=== PATIENT | male | born 1960 | race Caucasian/White ===

== ENCOUNTER 2020-04-25 09:27 | Emergency (ER) | payer OTHER ==
[2020-04-25] MEDS ORDERED: Sodium Chloride 0.9% 1,000 ML IV ONE (09:31)
[2020-04-25] MEDS ORDERED: Sodium Chloride 0.9% 10 ML Syringe FLUSH PRN (09:31)
[2020-04-25] MEDS ORDERED: Sodium Chloride 0.9% 2.5 ML Syringe FLUSH PRN (09:31)
--- NOTE | 2020-04-25 09:34 | EDM.PDOC ---
ED HPI GENERAL MEDICAL PROBLEM - General Chief Complaint: Genitourinary Problem Stated Complaint: PAIN IN LOWER ABD Time Seen by Provider: 04/25/20 09:31 Source of Information: Reports: Patient History Limitations: Reports: No Limitations - History of Present Illness INITIAL COMMENTS - FREE TEXT/NARRATIVE: PMHx frequent renal stones presents for LLQ abdominal pain radiating to groin since this morning. Feels similar to prior renal stones but worse. Pain does not radiate to back. Has not noted hematuria/dysuria. Denies constipation/diarrhea. Denies fevers. Left Abdomen Pain Score (Numeric/FACES): 10 - Related Data Allergies Allergy/AdvReac Type Severity Reaction Status Date / Time seafood Allergy Anaphylactic Uncoded 04/25/20 10:09 Shock Home Meds: Home Meds Fluticasone/Vilanterol [Breo Ellipta 100-25 MCG Inhalation Kit] 1 each IH 04/25/20 [History] Ibuprofen [Motrin] 600 mg PO Q6H PRN 10 Days #28 tab 04/25/20 [Rx] Tamsulosin [Tamsulosin 24 Hr] 0.4 mg PO DAILY #14 cap.er 04/25/20 [Rx] oxyCODONE HCl/Acetaminophen [Percocet 5-325 mg Tablet] 1 each PO Q4H #18 tablet 04/25/20 [Rx] ED ROS GENERAL - Review of Systems Review Of Systems: Comprehensive ROS is negative, except as noted in HPI. ED EXAM, RENAL/ - Physical Exam Exam: See Below Exam Limited By: No Limitations General Appearance: Alert, WD/WN, No Apparent Distress Ears: Normal External Exam Nose: Normal Inspection Throat/Mouth: Normal Inspection, Normal Voice, No Airway Compromise Head: Atraumatic, Normocephalic Neck: Normal Inspection Respiratory/Chest: No Respiratory Distress, Lungs Clear, Normal Breath Sounds, No Accessory Muscle Use Cardiovascular: Normal Peripheral Pulses, Regular Rate, Rhythm GI/Abdominal: Soft, Non-Tender, No Distention Back Exam: Normal Inspection. No: CVA Tenderness (L), CVA Tenderness (R) Extremities: Normal Inspection Neurological: Alert Psychiatric: Normal Affect, Normal Mood Skin Exam: Warm, Dry, Intact Course - Vital Signs Last Recorded V/S: Last Vital Signs Temp 96.5 F L 04/25/20 10:11 Pulse 72 04/25/20 10:39 Resp 16 04/25/20 10:39 BP 142/89 H 04/25/20 10:39 Pulse Ox 97 04/25/20 10:11 - Orders/Labs/Meds Orders: Active Orders 24 hr Category Date Time Status Ketorolac [Toradol] Med 04/25/20 09:45 Active 15 mg IVPUSH Q6H Sodium Chloride 0.9% [Saline Flush] Med 04/25/20 09:31 Active 10 ml FLUSH ASDIRECTED PRN Sodium Chloride 0.9% [Saline Flush] Med 04/25/20 09:31 Active 2.5 ml FLUSH ASDIRECTED PRN Saline Lock Insert [OM.PC] Stat Oth 04/25/20 09:32 Ordered Medication Orders Ketorolac Tromethamine (Toradol) 15 mg IVPUSH Q6H MARK Stop: 04/30/20 09:32 Last Admin: 04/25/20 10:43 Dose: Not Given Documented by: ELIA Sodium Chloride (Saline Flush) 10 ml FLUSH ASDIRECTED PRN PRN Reason: Keep Vein Open Last Admin: 04/25/20 10:37 Dose: 10 ml Documented by: ELIA Sodium Chloride (Saline Flush) 2.5 ml FLUSH ASDIRECTED PRN PRN Reason: Keep Vein Open Last Admin: 04/25/20 10:37 Dose: 2.5 ml Documented by: ELIA Labs: Laboratory Tests 04/25/20 04/25/20 04/25/20 Range/Units 10:06 10:06 10:10 WBC 12.58 H (4.0-11.0) K/uL RBC 5.01 (4.50-5.90) M/uL Hgb 15.6 (13.0-17.0) g/dL Hct 46.3 (38.0-50.0) % MCV 92.4 (80.0-98.0) fL MCH 31.1 (27.0-32.0) pg MCHC 33.7 (31.0-37.0) g/dL RDW Std Deviation 45.6 (28.0-62.0) fl RDW Coeff of Jael 13 (11.0-15.0) % Plt Count 198 (150-400) K/uL MPV 9.90 (7.40-12.00) fL Neut % (Auto) 76.6 (48.0-80.0) % Lymph % (Auto) 13.3 L (16.0-40.0) % [place] % (Auto) 7.7 (0.0-15.0) % Eos % (Auto) 2.0 (0.0-7.0) % Baso % (Auto) 0.4 (0.0-1.5) % Neut # (Auto) 9.6 H (1.4-5.7) K/uL Lymph # (Auto) 1.7 (0.6-2.4) K/uL [place] # (Auto) 1.0 H (0.0-0.8) K/uL Eos # (Auto) 0.3 (0.0-0.7) K/uL Baso # (Auto) 0.1 (0.0-0.1) K/uL Nucleated RBC % 0.0 /100WBC Nucleated RBCs # 0 K/uL Sodium 138 (136-148) mmol/L Potassium 4.2 (3.5-5.1) mmol/L Chloride 103 (98-107) mmol/L Carbon Dioxide 24.4 (21.0-32.0) mmol/L BUN 14 (7.0-18.0) mg/dL Creatinine 1.3 (0.8-1.3) mg/dL Est Cr Clr Drug Dosing TNP Estimated GFR (MDRD) 56.5 ml/min Glucose 115 H (74-106) mg/dL Calcium 8.5 (8.5-10.1) mg/dL Total Bilirubin 0.5 (0.2-1.0) mg/dL AST 21 (15-37) IU/L ALT 33 (14-63) IU/L Alkaline Phosphatase 53 (46-116) U/L Total Protein 7.3 (6.4-8.2) g/dL Albumin 3.9 (3.4-5.0) g/dL Globulin 3.4 (2.6-4.0) g/dL Albumin/Globulin Ratio 1.1 (0.9-1.6) Urine Color BROWN Urine Appearance SLT CLOUDY Urine pH 6.0 (5.0-8.0) Ur Specific [place] >= 1.030 (1.001-1.035) Urine Protein 30 H (NEGATIVE) mg/dL Urine Glucose (UA) NEGATIVE (NEGATIVE) mg/dL Urine Ketones TRACE H (NEGATIVE) mg/dL Urine Occult Blood LARGE H (NEGATIVE) Urine Nitrite NEGATIVE (NEGATIVE) Urine Bilirubin SMALL H (NEGATIVE) Urine Ictotest NEGATIVE Urine Urobilinogen 0.2 (<2.0) EU/dL Ur Leukocyte Esterase NEGATIVE (NEGATIVE) Urine RBC 75-100 (0-2/HPF) Urine WBC 0-3 (0-5/HPF) Ur Epithelial Cells RARE (NONE-FEW) Urine Bacteria FEW (NEGATIVE) Urine Mucus LIGHT (NONE-MOD) Meds: Medications Generic Name Dose Route Start Last Admin Trade Name Freq PRN Reason Stop Dose Admin Ketorolac Tromethamine 15 mg 04/25/20 09:45 04/25/20 10:43 Toradol IVPUSH 04/30/20 09:32 Not Given Q6H MARK Sodium Chloride 10 ml 04/25/20 09:31 04/25/20 10:37 Saline Flush FLUSH 10 ml ASDIRECTED PRN Administration Keep Vein Open Sodium Chloride 2.5 ml 04/25/20 09:31 04/25/20 10:37 Saline Flush FLUSH 2.5 ml ASDIRECTED PRN Administration Keep Vein Open Discontinued Medications Generic Name Dose Route Start Last Admin Trade Name Freq PRN Reason Stop Dose Admin Sodium Chloride 1,000 mls @ 999 mls/hr 04/25/20 09:31 04/25/20 10:37 Normal Saline IV 04/25/20 10:31 999 mls/hr .Bolus ONE Administration - Re-Assessments/Exams Free Text/Narrative Re-Assessment/Exam: 04/25/20 10:19 Will get labs/imaging, patient declines analgesia at this time. 04/25/20 12:16 CT remarkable for [id number] obstructive stone. Patient's pain is well controlled. Will d/c with pain control and urology f/u. Departure - Departure Time of Disposition: 12:17 Disposition: Home, Self-Care 01 Condition: Good Clinical Impression: Kidney stone - Discharge Information Prescriptions: Tamsulosin [Tamsulosin 24 Hr] 0.4 mg PO DAILY #14 cap.er Ibuprofen [Motrin] 600 mg PO Q6H PRN 10 Days #28 tab PRN Reason: Pain oxyCODONE HCl/Acetaminophen [Percocet 5-325 mg Tablet] 1 each PO Q4H #18 tablet Referrals: Jayson Mcguire MD [Primary Care Provider] - Forms: ED Department Discharge Additional Instructions: The following information is given to patients seen in the emergency department who are being discharged to home. This information is to outline your options for follow-up care. We provide all patients seen in our emergency department with a follow-up referral. The need for follow-up, as well as the timing and circumstances, are variable depending upon the specifics of your emergency department visit. If you don't have a primary care physician on staff, we will provide you with a referral. We always advise you to contact your personal physician following an emergency department visit to inform them of the circumstance of the visit and for follow-up with them and/or the need for any referrals to a consulting specialist. The emergency department will also refer you to a specialist when appropriate. This referral assures that you have the opportunity for follow-up care with a specialist. All of these measure are taken in an effort to provide you with optimal care, which includes your follow-up. Under all circumstances we always encourage you to contact your private physician who remains a resource for coordinating your care. When calling for follow-up care, please make the office aware that this follow-up is from your recent emergency room visit. If for any reason you are refused follow-up, please contact the [facility] Emergency Department at and asked to speak to the emergency department charge nurse. You can see the following for urology: [facility] [address] [place] [id number] scan shows: Acutely obstructing [id number] proximal left ureteral stone with multiple stones measuring up to 2mm in both renal collecting systems Sepsis Event Note (ED) - Focused Exam Vital Signs: Vital Signs Temp Pulse Resp BP Pulse Ox 04/25/20 10:39 72 16 142/89 H 04/25/20 10:11 96.5 F L 48 L 20 124/74 97 - My Orders Last 24 Hours: My Active Orders 04/25/20 09:31 Sodium Chloride 0.9% [Saline Flush] 10 ml FLUSH ASDIRECTED PRN Sodium Chloride 0.9% [Saline Flush] 2.5 ml FLUSH ASDIRECTED PRN 04/25/20 09:32 Saline Lock Insert [OM.PC] Stat 04/25/20 09:45 Ketorolac [Toradol] 15 mg IVPUSH Q6H - Assessment/Plan Last 24 Hours: My Active Orders 04/25/20 09:31 Sodium Chloride 0.9% [Saline Flush] 10 ml FLUSH ASDIRECTED PRN Sodium Chloride 0.9% [Saline Flush] 2.5 ml FLUSH ASDIRECTED PRN 04/25/20 09:32 Saline Lock Insert [OM.PC] Stat 04/25/20 09:45 Ketorolac [Toradol] 15 mg IVPUSH Q6H
[2020-04-25 10:37] LABS: BLOOD UREA NITROGEN,BUN 14 mg/dL (7.0-18.0); CARBON DIOXIDE,CO2 24.4 mmol/L (21.0-32.0); CHLORIDE,CL 103 mmol/L (98-107); GLUCOSE RANDOM 115 mg/dL (74-106); POTASSIUM,K 4.2 mmol/L (3.5-5.1); SODIUM,NA 138 mmol/L (136-148)
[2020-04-25] MEDS: Ketorolac 15 MG/ML SDV IVPUSH SCH ×2 (10:37→10:43)
--- NOTE | 2020-04-25 12:03 | CT ---
INDICATION: Left-sided abdominal pain. History of stones. TECHNIQUE: Volumetric helical scanning of the abdomen and pelvis was performed without contrast material. Coronal and sagittal reconstructions were obtained. COMPARISON: None. FINDINGS: Acutely obstructing 8 x 6 x 5 mm proximal left ureteral stone is demonstrated at the level of the L4 superior endplate. This stone has attenuation of 1540 HU. A number of additional tiny stones are noted in the left collecting system, the largest measuring up to 2 mm. A number of 2 mm stones in the right renal collecting system were also demonstrated. A 2 cm left renal cyst containing milk of calcium is noted. The renal parenchyma is otherwise unremarkable. The bladder is grossly negative. The prostate is negative. No free fluid is evident. The liver is unremarkable except for a 5 mm low-attenuation lesion in segment 6, likely a cyst. No bile duct dilation is evident. The spleen is within normal limits. The adrenal glands are unremarkable. The pancreas is within normal limits. No lymphadenopathy is evident. The bowel is unremarkable. The lung bases are clear. A noncalcified 4 mm right lower lobe base nodule is noted on image 6 of series 201. The heart is normal in size. IMPRESSION: 1. Acutely obstructing 8 x 6 x 5 mm proximal left ureteral stone at the level of the L4 superior endplate. 2. Multiple stones measuring up to 2 mm in both renal collecting systems. 3. 2 cm left renal cyst containing milk of calcium. 4. Probable 5 mm liver cyst. 5. Noncalcified 4 mm right lower lobe nodule. In accordance with Fleischner Society Guidelines (see below), if the patient is at low risk for lung cancer no further evaluation is necessary. If he has a smoking history or is otherwise at high risk for lung cancer, a [address] is recommended. FLEISCHNER SOCIETY GUIDELINES: LOW RISK: - nodule less than 6 mm: No follow-up needed. - nodule 6-8 mm: Initial follow-up CT at 6-12 months and then at 18-24 months if no change. - nodule greater than 8 mm: Follow-up CTs at around 3, 9, and 24 months. Dynamic contrast-enhanced CT, PET, and/or biopsy. MULTIPLE LOW RISK: - nodule less than 6 mm: No follow-up needed. - nodule 6-8 mm: CT at 3-6 months, then consider CT at 18-24 months. - nodule greater than 8 mm: CT at 3-6 months, then consider CT at 18-24 months. HIGH RISK: - nodule less than 6 mm: Follow-up at 12 months. If no change, no further imaging needed. - nodule 6-8 mm: Initial follow-up CT at 3-6 months and then at 9-12 and 24 months if no change. - nodule greater than 8 mm: Follow-up CTs at around 3, 9, and 24 months. Dynamic contrast-enhanced CT, PET, and/or biopsy. MULTIPLE HIGH RISK: - nodule less than 6 mm: Optional CT at 12 months. - nodule 6-8 mm: CT at 3-6 months, then at 18-24 months. - nodule greater than 8 mm: CT at 3-6 months, then at 18-24 months. HIGH RISK is defined as one or more of the following: - at least 20 pack-year smoking history or equivalent second-hand exposure. - personal history of cancer or family history of lung cancer. - occupational exposure (asbestos, beryllium, silica, uranium, radon) - chronic interstitial/fibrotic lung disease. Please note that all CT scans at this facility use dose modulation, iterative reconstruction, and/or weight-based dosing when appropriate to reduce radiation dose to as low as reasonably achievable. Dictated by Shad Haddad MD @ Apr 25 2020 11:48AM Signed by Dr. Shad Haddad @ Apr 25 2020 12:01PM
== END 2020-04-25 12:34 | disposition home or self-care (01) ==
LOC: MW.ED 09:27
DX: N20.2 Calculus of kidney with calculus of ureter (principal); Z91.013 Allergy to seafood
CPT/HCPCS: 36415; 74176; 80053; 81001; 85025; 96360; 99284; J7030; 99283; J1885